=== PATIENT | male | born 1980 | race African-American/Black ===

== ENCOUNTER 2020-01-02 17:44 | Emergency (ER) | payer SELFPAY ==
[~2020-01-02] VITALS: Ht 175.3 cm; Wt 92.2 kg
--- NOTE | 2020-01-02 18:58 | RAD ---
FOOT RIGHT 3V History: Reason: great toe pain after stumbling up stairs / Spl. Instructions: / History: Technique: 3 views right foot. Comparison: None. Findings: Normal alignment. No fracture. First digit medial soft tissue swelling. Plantar calcaneal spur. Posttraumatic changes to the distal tibial fibular syndesmosis. Impression: 1. No acute osseous abnormality. 2. First digit medial soft tissue swelling. Electronically signed by: Bo Diaz DO (01/02/2020 6:54 PM) [facility]
[2020-01-02] MEDS ORDERED: PRED50TA PO (19:21)
[2020-01-02] MEDS ORDERED: COLC0.6T34 PO (19:21)
[2020-01-02] MEDS ORDERED: HYDR-2761 PO (19:21)
--- NOTE | 2020-01-02 19:21 | PHYS DOC ---
Past Medical History Past Medical History: No Pertinent History Past Surgical History: Pacemaker Smoking Status: Current Every Day Smoker Alcohol Use: Occasionally General Adult EDM: Chief Complaint: TOE PROBLEM HPI: HPI: Patient is a 39 year old AA resents to the emergency department with complaints of right great toe pain for the last week. Patient states he was running up some stairs about a week ago and thinks that he injured his toe. He denies any numbness, tingling, or decreased range of motion of the affected toe. Patient currently rates the pain 8 out of 10 on the pain scale he denies any alleviating factors, the pain is worse with palpation and movement. Patient denies a history of gout however states he does eat a lot of red meat and drinks alcohol on a daily basis. Review of Systems: Review of Systems: Constitutional: Denies fever or chills. [] Eyes: Denies change in visual acuity. [] HENT: Denies nasal congestion or sore throat. [] Respiratory: Denies cough or shortness of breath. [] Cardiovascular: Denies chest pain or edema. [] Musculoskeletal: See HPI Integument: Reports erythema and edema of right great toe denies any drainage or bleeding Neurologic: Denies headache, focal weakness or sensory changes. [] Psychiatric: Denies depression or anxiety. [] Heart Score: Risk Factors: Risk Factors: DM, Current or recent (<one month) smoker, HTN, HLP, family history of CAD, obesity. Risk Scores: Score 0 - 3: 2.5% MACE over next 6 weeks - Discharge Home Score 4 - 6: 20.3% MACE over next 6 weeks - Admit for Clinical Observation Score 7 - 10: 72.7% MACE over next 6 weeks - Early Invasive Strategies Allergies: Allergies: Allergies Coded Allergies Type Severity Reaction Last Updated Verified prochlorperazine Allergy Unknown 01/02/20 Yes Physical Exam: PE: Constitutional: Well developed, well nourished, no acute distress, non-toxic appearance. [] HENT: Normocephalic, atraumatic, bilateral external ears normal, nose normal. [] Eyes: PERRLA, EOMI, conjunctiva normal, no discharge. [] Neck: Normal range of motion, no stridor. [] Cardiovascular:Heart rate regular rhythm Lungs & Thorax: Respirations even and unlabored, no retractions, no respiratory distress Skin: Warm, dry; erythema and edema to right great toe concerning for gout Extremities: Right great toe: No crepitus, no obvious deformity, no cyanosis, ROM intact, 1+ edema. [] Neurologic: Alert and oriented X 3, no focal deficits noted. [] Psychologic: Affect normal, judgement normal, mood normal. [] Current Patient Data: Vital Signs: Vital Signs Date Time Temp Pulse Resp B/P (MAP) Pulse Ox O2 Delivery O2 Flow Rate FiO2 01/02/20 18:29 97.7 94 18 138/76 (96) 96 Room Air 97.7 EKG: EKG: [] Radiology/Procedures: Radiology/Procedures: PROCEDURE: FOOT RIGHT 3V FOOT RIGHT 3V History: Reason: great toe pain after stumbling up stairs / Spl. Instructions: / History: Technique: 3 views right foot. Comparison: None. Findings: Normal alignment. No fracture. First digit medial soft tissue swelling. Plantar calcaneal spur. Posttraumatic changes to the distal tibial fibular syndesmosis. Impression: 1. No acute osseous abnormality. 2. First digit medial soft tissue swelling. [] Course & Med Decision Making: Course & Med Decision Making Pertinent Labs and Imaging studies reviewed. (See chart for details) [] Dragon Disclaimer: Dragon Disclaimer: This electronic medical record was generated, in whole or in part, using a voice recognition dictation system. Departure Departure Impression: Primary Impression: Gouty arthritis of right great toe Disposition: HOME, SELF-CARE Condition: STABLE Referrals: NO PCP (PCP) Patient Instructions: Gout, [id number] Additional Instructions: Fill the prescription and use as directed. Follow-up with a primary care doctor for further evaluation and treatment of gout. Return to the ER if symptoms worsen or you develop a fever. Scripts Hydrocodone Bit/Acetaminophen (HYDROCODONE-APAP 5-325 ) 1 Tab Tablet 1 TAB PO PRN Q6HRS PRN for PAIN for 3 Days, #12 TAB 0 Refills Prov: VANDANA CHOI APRN 01/02/20 Colchicine (COLCRYS) 0.6 Mg Tablet 0.6 MG PO BID for 10 Days, #20 TAB 0 Refills STOP TAKING ONCE SYMPTOMS RESOLVE Prov: VANDANA CHOI APRN 01/02/20 Prednisone (PREDNISONE) 50 Mg Tablet 1 TAB PO DAILY for 4 Days, #4 TAB 0 Refills BEGIN TAKING TOMORROW 01/03/20 Prov: VANDANA CHOI APRN 01/02/20 Justicifation of Admission Dx: Justifications for Admission: Justification of Admission Dx: VANDANA Thomas APRN Jan 02, 2020 19:21
[2020-01-02 19:30] VITALS: BP 134/75
[2020-01-02] MEDS ORDERED: predniSONE 10 MG TABLET PO ONE (20:00)
== END 2020-01-02 19:34 | disposition home or self-care (01) ==
LOC: ER 17:44
DX: M10.071 Idiopathic gout, right ankle and foot (principal); M79.671 Pain in right foot; F17.200 Nicotine dependence, unspecified, uncomplicated; Z95.0 Presence of cardiac pacemaker; Z88.8 Allergy status to other drugs, medicaments and biological substances
CPT/HCPCS: 73630; 99283; J7512